=== PATIENT | female | born 1940 | race Caucasian/White ===

== ENCOUNTER 2018-06-24 16:16 | Emergency (ER) | payer OTHER ==
[2018-06-24] MEDS: ACETAMINOPHEN 325 MG TAB PO (17:40)
== END 2018-06-24 20:14 | disposition home or self-care (01) ==
LOC: FTE 16:16
DX: S62.101A Fracture of unspecified carpal bone, right wrist, initial encounter for closed fracture (principal); I10 Essential (primary) hypertension; W01.0XXA Fall on same level from slipping, tripping and stumbling without subsequent striking against object, initial encounter; Y92.9 Unspecified place or not applicable
CPT/HCPCS: 29105; 73080-RT; 73110-RT; 99283-25